=== PATIENT | male | born 1955 | race Caucasian/White ===

== ENCOUNTER 2022-01-03 11:11 | Inpatient (IN) | payer OTHER, MEDICAID ==
[~2022-01-03] VITALS: Ht 188 cm; Wt 85.0 kg
[2022-01-03 12:59] LABS: Basophils # (auto) 0.1 10 ^3/uL (0-0.2); Eosinophils # (auto) 0.1 10 ^3/uL (0-0.8); Eosinophils % (auto) 1.5 % (0.0-7.0); Nucleated Red Blood Cells % 0.1 %
[2022-01-03 13:00] LABS: Basophils % (auto) 0.5 % (0.0-2.0); Hematocrit 43.7 % (41.0-53.0); Hemoglobin 15.3 g/dL (13.5-17.5); Lymphocytes % (auto) 10.8 % (10.0-50.0); Mean Corpuscular Hemoglobin 29.2 pg (28.0-32.0); Mean Corpuscular Hgb Conc. 35.1 g/dL (32.0-36.0); Mean Corpuscular Volume 83.2 fL (80.0-100.0); Monocytes # (auto) 0.9 10 ^3/uL (0-1.3); Neutrophils # (auto) 7.5 10 ^3/uL (1.6-8.6); Neutrophils % (auto) 78.2 % (37.0-80.0); Red Blood Cells 5.25 10^6/uL (4.5-5.90); Red Cell Distribution Width 13.1 % (11.8-14.3); White Blood Cell 9.5 10^3/uL (4.4-10.8)
[2022-01-03 13:27] LABS: Albumin 3.9 g/dL (3.4-5.0); Calcium 8.4 mg/dL (8.5-10.1); Magnesium 2.2 mg/dL (1.6-2.6); Potassium 4.5 mmol/L (3.5-5.1)
[2022-01-03 13:45] LABS: BUN/Creatinine Ratio 19.1; Bilirubin, Total 0.6 mg/dL (0.2-1.0); Total Protein 7.4 g/dL (6.4-8.2)
[2022-01-03] MEDS ORDERED: SODIUM CHLORIDE 0.9% 500 ML IV ONE (14:45)
[2022-01-03 15:31] LABS: Basophils # (auto) 0 10 ^3/uL (0-0.2); Basophils % (auto) 0.4 % (0.0-2.0); Eosinophils # (auto) 0.1 10 ^3/uL (0-0.8); Eosinophils % (auto) 0.9 % (0.0-7.0); Hematocrit 47.2 % (41.0-53.0); Hemoglobin 16.4 g/dL (13.5-17.5); Lymphocytes # (auto) 1.1 10 ^3/uL (0.4-5.4); Lymphocytes % (auto) 10.2 % (10.0-50.0); Mean Corpuscular Hemoglobin 28.7 pg (28.0-32.0); Mean Corpuscular Hgb Conc. 34.8 g/dL (32.0-36.0); Mean Corpuscular Volume 82.4 fL (80.0-100.0); Monocytes # (auto) 0.7 10 ^3/uL (0-1.3); Monocytes % (auto) 6.3 % (0.0-12.0); Neutrophils % (auto) 82.2 % (37.0-80.0); Nucleated Red Blood Cells % 0.1 %; Red Blood Cells 5.73 10^6/uL (4.5-5.90); Red Cell Distribution Width 13.2 % (11.8-14.3)
[2022-01-03 15:41] LABS: Urine Bacteria NONE SEEN /hpf (None Seen); Urine Blood Negative /uL (Negative); Urine Hyaline Cast FEW /lpf (0 - 2); Urine Mucus FEW (None Seen); Urine Specific Gravity 1.011 (1.001-1.035); Urine WBC <1 /hpf (0 - 3)
[2022-01-03] MEDS ORDERED: ONDANSETRON HCL 4 MG/2 ML VIAL IV PRN (22:30)
[2022-01-03] MEDS ORDERED: ACETAMINOPHEN 325 MG TAB PO PRN (22:30)
[2022-01-03] MEDS ORDERED: LORazepam 2MG/ML-1ML VIAL IV PRN (22:30)
[2022-01-04 05:07] LABS: Basophils # (auto) 0 10 ^3/uL (0-0.2); Basophils % (auto) 0.6 % (0.0-2.0); Eosinophils # (auto) 0.1 10 ^3/uL (0-0.8); Eosinophils % (auto) 0.7 % (0.0-7.0); Hematocrit 46.8 % (41.0-53.0); Hemoglobin 16.6 g/dL (13.5-17.5); Lymphocytes % (auto) 11.2 % (10.0-50.0); Mean Corpuscular Hemoglobin 29.3 pg (28.0-32.0); Mean Corpuscular Hgb Conc. 35.5 g/dL (32.0-36.0); Mean Corpuscular Volume 82.5 fL (80.0-100.0); Monocytes # (auto) 0.8 10 ^3/uL (0-1.3); Neutrophils # (auto) 6.9 10 ^3/uL (1.6-8.6); Neutrophils % (auto) 78.5 % (37.0-80.0); Nucleated Red Blood Cells % 0.1 %; Red Blood Cells 5.68 10^6/uL (4.5-5.90); White Blood Cell 8.8 10^3/uL (4.4-10.8)
[2022-01-04 05:29] LABS: Potassium 4.2 mmol/L (3.5-5.1)
[2022-01-04 05:37] LABS: Albumin 4.2 g/dL (3.4-5.0); Bilirubin, Total 1.1 mg/dL (0.2-1.0); Total Protein 7.6 g/dL (6.4-8.2)
[2022-01-04] MEDS ORDERED: MIDAZOLAM HCL 2MG/2ML 2ml VIAL (1mg/ml) IV PRN (09:30)
[2022-01-04] MEDS ORDERED: LORazepam 2MG/ML-1ML VIAL IV PRN (09:30)
[2022-01-04] MEDS ORDERED: PANTOPRAZOLE 40 MG TAB PO SCH (10:00)
[2022-01-04] MEDS ORDERED: LOSARTAN POTASSIUM 50 MG TAB PO SCH (10:00)
[2022-01-04] MEDS ORDERED: levETIRAcetam 500 MG TAB PO SCH (10:00)
[2022-01-04] MEDS ORDERED: ASPirin 81 mg TAB PO SCH (10:00)
[2022-01-04] MEDS ORDERED: ENOXAPARIN SOD 40 MG/0.4 ML SYRINGE SC SCH (10:00)
[2022-01-04] MEDS ORDERED: CARVEDILOL 3.125 MG TAB PO SCH (10:00)
[2022-01-04] MEDS ORDERED: amLODIPine BESYLATE 5 MG TAB PO SCH (10:00)
[2022-01-04] MEDS ORDERED: APIXABAN 2.5 MG TAB PO ONE (11:30)
[2022-01-04] MEDS ORDERED: AMIODARONE HCL 200 MG TAB PO ONE (12:00)
[2022-01-04] MEDS ORDERED: ASPI1TAB20 PO (17:07)
[2022-01-04] MEDS ORDERED: CARV12.544 PO (17:07)
[2022-01-04] MEDS ORDERED: KEP500T PO (17:07)
[2022-01-04] MEDS ORDERED: LOSA-39 PO (17:07)
[2022-01-04] MEDS ORDERED: AML5T PO (17:07)
[2022-01-04] MEDS ORDERED: ATOR40TA52 PO (17:07)
[2022-01-04 18:39] VITALS: BP 161/93
[2022-01-04] MEDS ORDERED: hydrALAZINE HCL 20 MG/ML VL IV ONE (19:15)
[2022-01-04] MEDS ORDERED: AMIODARONE HCL 200 MG TAB PO SCH (22:00)
[2022-01-04] MEDS ORDERED: ATORVASTATIN 20 MG TAB PO SCH (22:00)
[2022-01-04] MEDS ORDERED: APIXABAN 2.5 MG TAB PO SCH (22:00)
[2022-01-05] MEDS ORDERED: AMIODARONE HCL 200 MG TAB PO SCH (10:00)
== END 2022-01-04 20:43 | disposition home or self-care (01) | DRG 69 ==
LOC: ER 11:11 → OVERFLOW 22:22 → WEST WING 01-04 16:08 → TELE-WESTW 01-04 18:29
PROVIDERS: ADMIT Nurse Practitioner; ATTEND Internal Medicine
DX: G45.9 Transient cerebral ischemic attack, unspecified (principal); G40.209 Localization-related (focal) (partial) symptomatic epilepsy and epileptic syndromes with complex partial seizures, not intractable, without status epilepticus; E78.5 Hyperlipidemia, unspecified; F17.200 Nicotine dependence, unspecified, uncomplicated; M25.512 Pain in left shoulder; Z20.822 Contact with and (suspected) exposure to COVID-19; I10 Essential (primary) hypertension; I48.91 Unspecified atrial fibrillation; Z79.82 Long term (current) use of aspirin; Z79.899 Other long term (current) drug therapy; Z82.49 Family history of ischemic heart disease and other diseases of the circulatory system; Z86.73 Personal history of transient ischemic attack (TIA), and cerebral infarction without residual deficits
CPT/HCPCS: 36415; 70450; 70551; 71045; 73200; 80053; 81001; 83735; 84443; 84484; 85025; 86850; 86900; 86901; 93005; 93306; 93886; 95819; G0378

== ENCOUNTER → 2022-01-03 | Outpatient (CLI) | payer OTHER ==
[~2022-01-03] MED LIST: AML5T PO; ASPI1TAB20 PO; ATOR40TA52 PO; CARV12.544 PO; KEP500T PO; LOSA-39 PO
[2022-01-03 11:22] LABS: Basophils # (auto) 0.1 10 ^3/uL (0-0.2); Eosinophils # (auto) 0.1 10 ^3/uL (0-0.8); Eosinophils % (auto) 2.5 % (0.0-7.0); Hemoglobin 15.3 g/dL (13.5-17.5); Lymphocytes # (auto) 1.1 10 ^3/uL (0.4-5.4); Mean Corpuscular Hemoglobin 28.8 pg (28.0-32.0); Mean Corpuscular Hgb Conc. 34.8 g/dL (32.0-36.0); Mean Corpuscular Volume 82.7 fL (80.0-100.0); Monocytes # (auto) 0.6 10 ^3/uL (0-1.3); Neutrophils # (auto) 3.8 10 ^3/uL (1.6-8.6); Neutrophils % (auto) 67.5 % (37.0-80.0); Nucleated Red Blood Cells % 0.2 %; Red Blood Cells 5.32 10^6/uL (4.5-5.90); Red Cell Distribution Width 13.1 % (11.8-14.3); White Blood Cell 5.7 10^3/uL (4.4-10.8)
[2022-01-03 12:53] LABS: Potassium 4.5 mmol/L (3.5-5.1)
[2022-01-03 13:00] LABS: Albumin 3.9 g/dL (3.4-5.0); BUN/Creatinine Ratio 18.1; Bilirubin, Total 0.6 mg/dL (0.2-1.0); Calcium 8.7 mg/dL (8.5-10.1); Total Protein 7.6 g/dL (6.4-8.2)
== END | disposition home or self-care (01) ==
LOC: LAB 10:40
PROVIDERS: ATTEND Internal Medicine
DX: Z12.11 Encounter for screening for malignant neoplasm of colon (principal); I10 Essential (primary) hypertension; E78.5 Hyperlipidemia, unspecified
CPT/HCPCS: 36415; 80053; 80061; 83036; 84153; 85025

== ENCOUNTER → 2022-02-16 | Outpatient (CLI) | payer OTHER, MEDICAID | END | disposition home or self-care (01) | LOC: LAB 08:34 | PROVIDERS: ATTEND Internal Medicine | DX: M25.512 Pain in left shoulder (principal) | CPT/HCPCS: 36415; 82565; 84520 ==

== ENCOUNTER → 2022-08-30 | Outpatient (CLI) | payer OTHER, MEDICAID | END | disposition home or self-care (01) | LOC: XYW 13:57 | PROVIDERS: ATTEND Internal Medicine | DX: I35.8 Other nonrheumatic aortic valve disorders (principal); R06.02 Shortness of breath; I51.7 Cardiomegaly; I48.91 Unspecified atrial fibrillation | CPT/HCPCS: 93306 ==

== ENCOUNTER → 2023-01-25 | Outpatient (CLI) | payer OTHER, MEDICAID ==
[~2023-01-25] MED LIST changes: -LOSA-39 PO; +LOSA100T58 PO
== END | disposition home or self-care (01) ==
LOC: LAB 12:12
PROVIDERS: ATTEND Internal Medicine
DX: Z00.00 Encounter for general adult medical examination without abnormal findings (principal); Z12.5 Encounter for screening for malignant neoplasm of prostate; Z12.11 Encounter for screening for malignant neoplasm of colon
CPT/HCPCS: 84153

== ENCOUNTER → 2023-10-18 | Outpatient (CLI) | payer OTHER, MEDICAID ==
[~2023-10-18] MED LIST changes: +LOSA-535 PO; -LOSA100T58 PO
[2023-10-18 09:35] LABS: Anion Gap 8 (5-15); Calcium 9.2 mg/dL (8.5-10.1); Carbon Dioxide 22 mmol/L (20-30); Chloride 110 mmol/L (98-107); Sodium 140 mmol/L (136-145)
[2023-10-18 09:41] LABS: BUN/Creatinine Ratio 13.8 (10.0-20.0); Blood Urea Nitrogen 26 mg/dL (9-23); Glucose 90 mg/dL (74-106)
== END | disposition home or self-care (01) ==
LOC: LAB 08:37
PROVIDERS: ATTEND Internal Medicine
DX: E78.5 Hyperlipidemia, unspecified (principal); K76.0 Fatty (change of) liver, not elsewhere classified
CPT/HCPCS: 36415; 80048

== ENCOUNTER → 2024-02-22 | Outpatient (CLI) | payer OTHER, MEDICAID ==
[2024-02-22 10:46] LABS: Alanine Aminotransferase 48 U/L (7-40); Alkaline Phosphatase 90 U/L (46-116); Anion Gap 6 (5-15); BUN/Creatinine Ratio 11.7 (10.0-20.0); Blood Urea Nitrogen 21 mg/dL (9-23); Calcium 9.4 mg/dL (8.7-10.4); Carbon Dioxide 25 mmol/L (20-31); Chloride 110 mmol/L (98-107); Glucose 92 mg/dL (74-106); LDL Cholesterol 65 mg/dL (< 100); Potassium 4.2 mmol/L (3.5-5.1); Sodium 141 mmol/L (136-145); Triglycerides 116 mg/dL (< 150)
[2024-02-22 10:47] LABS: Albumin 4.3 g/dL (3.2-4.8); Aspartate Aminotransferase 20 U/L (13-40)
[2024-02-22 10:48] LABS: Bilirubin, Total 0.7 mg/dL (0.2-1.0); Cholesterol 117 mg/dL (< 200); HDL Cholesterol 34 mg/dL (40-59); Total Protein 7.1 g/dL (5.7-8.2)
== END | disposition home or self-care (01) ==
LOC: LAB 08:21
PROVIDERS: ATTEND Internal Medicine
DX: Z12.5 Encounter for screening for malignant neoplasm of prostate (principal); E78.5 Hyperlipidemia, unspecified; N18.30 Chronic kidney disease, stage 3 unspecified
CPT/HCPCS: 36415; 80053; 80061; 84153

== ENCOUNTER → 2024-08-27 | Outpatient (CLI) | payer OTHER, MEDICAID ==
[2024-08-27 09:24] LABS: Alanine Aminotransferase 30 U/L (7-40); Albumin 4.5 g/dL (3.2-4.8); Alkaline Phosphatase 86 U/L (46-116); Anion Gap 8 (5-15); Aspartate Aminotransferase 15 U/L (13-40); Calcium 9.8 mg/dL (8.7-10.4); Carbon Dioxide 24 mmol/L (20-31); Cholesterol 124 mg/dL (< 200); Glucose 93 mg/dL (74-106); LDL Cholesterol 73 mg/dL (< 100); Potassium 4.1 mmol/L (3.5-5.1); Sodium 143 mmol/L (136-145); Total Protein 7.2 g/dL (5.7-8.2); Triglycerides 117 mg/dL (< 150)
[2024-08-27 09:25] LABS: Bilirubin, Total 0.9 mg/dL (0.2-1.0)
[2024-08-27 09:29] LABS: Blood Urea Nitrogen 24 mg/dL (9-23); Chloride 111 mmol/L (98-107); HDL Cholesterol 33 mg/dL (40-59)
== END | disposition home or self-care (01) ==
LOC: LAB 08:34
PROVIDERS: ATTEND Internal Medicine
DX: E78.5 Hyperlipidemia, unspecified (principal); N18.32 Chronic kidney disease, stage 3b
CPT/HCPCS: 36415; 80053; 80061

== ENCOUNTER 2025-02-20 08:01 | Outpatient (CLI) | payer OTHER, MEDICAID ==
[2025-02-20 09:34] LABS: Alanine Aminotransferase 32 U/L (7-40); Albumin 4.2 g/dL (3.2-4.8); Alkaline Phosphatase 88 U/L (46-116); Anion Gap 9 (5-15); BUN/Creatinine Ratio 14.4 (10.0-20.0); Calcium 9.0 mg/dL (8.7-10.4); Carbon Dioxide 23 mmol/L (20-31); Cholesterol 129 mg/dL (< 200); Glucose 85 mg/dL (74-106); Potassium 4.4 mmol/L (3.5-5.1); Sodium 141 mmol/L (136-145); Total Protein 7.2 g/dL (5.7-8.2); Triglycerides 100 mg/dL (< 150)
[2025-02-20 09:35] LABS: Bilirubin, Total 0.9 mg/dL (0.2-1.0)
[2025-02-20 09:38] LABS: Blood Urea Nitrogen 25 mg/dL (9-23); Chloride 109 mmol/L (98-107); HDL Cholesterol 33 mg/dL (40-59)
== END 2025-02-20 17:00 | disposition home or self-care (01) ==
LOC: LAB 08:01
PROVIDERS: ATTEND Internal Medicine
DX: N18.32 Chronic kidney disease, stage 3b (principal); E78.5 Hyperlipidemia, unspecified; Z79.899 Other long term (current) drug therapy
CPT/HCPCS: 36415; 80053; 80061; 83036; 84153